=== PATIENT | female | born 1995 | race Two or more races ===

== ENCOUNTER 2019-12-16 13:40 | Inpatient (IN) | payer OTHER ==
[2019-12-16 15:49] VITALS: BMI 45.4
[2019-12-16] MEDS: ELECTROLYTE-148 SOLN 1,000 ML IV SCH (16:00)
[2019-12-16 16:28] LABS: WHITE BLOOD COUNT 7.6 K/mm3 (4.0-10.0)
[2019-12-16 16:29] LABS: BASO % 0.8 % (0-2.0); EOS % 0.3 % (0-4.5); HEMATOCRIT 33.9 % (32.4-45.2); HEMOGLOBIN 11.2 GM/dL (10.7-15.3); LYMPH % 19.6 % (8-40); MCH 28.6 pg (25.7-33.7); MEAN CELL VOLUME 86.7 fl (80-96); MEAN PLT VOLUME 10.8 fl (7.5-11.1); MONO % 5.2 % (3.8-10.2); NEUT % 74.1 % (42.8-82.8); PLATELET COUNT 231 K/MM3 (134-434)
[2019-12-16 16:35] LABS: INR 1.01 (0.83-1.09); PROTHROMBIN TIME (PATIENT) 11.9 SEC (9.7-13.0)
[2019-12-16 16:38] LABS: ACTIVATED PTT 26.2 SECONDS (25.2-36.5)
--- NOTE | 2019-12-16 16:41 | HP ---
Past Medical History - Primary Care Physician PCP:: [facility] - Admission Chief Complaint: referred by Dr. Ladonna JAIMES for IOL due to borderline JANAE of 5, generalized itching and elevated LFTs (atypical preeclampsia vs cholestasis of - bile acids pending) History Source: Patient Limitations to Obtaining History: No Limitations - Past Medical History Reproductive: Yes: Polycystic Ovary Syndrome ...: 3 ...Para: 0 ...Term: 0 ...: 0 ...Spon : 1 ...Induced : 1 ...Living Children: 0 ...Multiple Gestation: 0 ...LMP: 04/06/19 ... Weeks Gestation by Dates: 36.1 ...EDC by Dates: 01/12/20 ...EDC by Sono: 01/15/20 Psych: Yes: Depression (h/o suicide attempt 02/2019 s/p psych [facility] admission x 4 days) - Past Surgical History Past Surgical History: Yes: None Hx Myomectomy: No Hx Transabdominal Cerclage: No - Smoking History Smoking history: Never smoked Have you smoked in the past 12 months: No - Alcohol/Substance Use Hx Alcohol Use: No Home Medications - Allergies Allergies/Adverse Reactions: Allergies Allergy/AdvReac Type Severity Reaction Status Date / Time Sulfa (Sulfonamide Allergy Intermediate Rash Verified 12/16/19 15:20 Antibiotics) - Home Medications Home Medications: Ambulatory Orders Aspirin [ASA -] 81 mg PO DAILY 12/16/19 Pnv No.95/Ferrous Fum/Folic AC [ Vitamin Tablet] 1 each PO DAILY 12/16/19 Review of Systems - Review of Systems Constitutional: reports: No Symptoms Cardiovascular: reports: No Symptoms Respiratory: reports: No Symptoms Gastrointestinal: reports: No Symptoms Genitourinary: reports: No Symptoms Breasts: reports: No Symptoms Reported Musculoskeletal: reports: No Symptoms Neurological: reports: No Symptoms Psychiatric: reports: No Symptoms Physical Exam - Maternity Vital Signs: Vital Signs Temperature 98.9 F 12/16/19 16:23 Pulse Rate 114 H 12/16/19 16:23 Respiratory Rate 12/16/19 16:23 Blood Pressure 111/70 12/16/19 16:23 O2 Sat by Pulse Oximetry (%) Constitutional: Yes: No Distress, Calm Cardiovascular: Yes: Regular Rate and Rhythm Lungs: Clear to auscultation - Abdominal Exam/OB Fundal Height: 36 Number of Fetuses: Single Presentation: Vertex Contractions: No Monitor Mode: External Category: I Accelerations: Uniform Decelerations: None - Vaginal Exam/OB Vaginal Bleeding: No Dilatation (cm): 0 Effacement (%): 0 Amniotic Membrane Status: Intact Presentation: Vertex/Position Station: -4 - Physical Exam Musculoskeletal: Yes: WNL Extremities: Yes: WNL Edema: No Psychiatric: Yes: Alert, Oriented - Labs Lab Results: CBC, BMP 12/16/19 16:04 Assessment/Plan 24 y/o at 36w1d referred by Dr. Dougherty [facility] for IOL due to borderline JANAE of 5, generalized itching and elevated LFTs (atypical preeclampsia vs cholestasis of - bile acids pending) GDMA1 s/p course of steroids last week Admit to L&D EFM and toco Cervidil to be placed Blood glucose monitoring Reassess
[2019-12-16 16:58] LABS: ALBUMIN 2.6 g/dl (3.4-5.0); BILIRUBIN,TOTAL 0.4 mg/dL (0.2-1); BLOOD UREA NITROGEN 16.8 mg/dL (7-18); CALCIUM 9.3 mg/dL (8.5-10.1); CREATININE 0.8 mg/dL (0.55-1.3); POTASSIUM 4.4 mmol/L (3.5-5.1); TOT PROT 6.8 g/dl (6.4-8.2)
[2019-12-16] MEDS ORDERED: DINOPROSTONE 10 MG VAGINAL SUPPOSITORY VG ONE (16:58)
[2019-12-16] MEDS: PROMETHAZINE HCL 25 MG/1 ML VIAL IVPUSH ONE (21:11)
[2019-12-16] MEDS: BUTORPHANOL TARTRATE 1 MG/ML VIAL IVPB ONE (21:11)
[2019-12-17] MEDS ORDERED: DINOPROSTONE 10 MG VAGINAL SUPPOSITORY VG ONE (05:32)
--- NOTE | 2019-12-17 05:38 | PN ---
Progress Note (short form) - Note Progress Note: 24 y/o at 36w2d with GDMA1 undergoing IOL due to generalized itching and elevated LFTs (atypical preeclampsia vs cholestasis of - bile acids pending), borderline JANAE of 5 s/p course of steroids last week Patient c/o crampy abdominal pain; desires pain medication. VSS VE 1-2/50/-3, membranes intact Tracing category 1 Irregular contractions Plan: Cervidil #2 placed Stadol & phenergan EFM and toco Blood glucose monitoring Reassess
[2019-12-17] MEDS: PROMETHAZINE HCL 25 MG/1 ML VIAL IVPUSH ONE (06:00)
[2019-12-17] MEDS: BUTORPHANOL TARTRATE 1 MG/ML VIAL IVPB ONE (06:00)
[2019-12-17] MEDS ORDERED: PROMETHAZINE HCL 25 MG/1 ML VIAL ONE (06:06)
[2019-12-17] MEDS ORDERED: BUTORPHANOL TARTRATE 2 MG/ML VIAL ONE (06:06)
[2019-12-17] MEDS ORDERED: AMPICILLIN SODIUM 2 GM VIAL ONE (08:30)
[2019-12-17] MEDS ORDERED: AMPICILLIN - 2 GM in SODIUM CHLORIDE 100 ML IVPB ONE (08:46)
--- NOTE | 2019-12-17 08:50 | PN ---
Progress Note (short form) - Note Progress Note: cervix 1 cm 50% effaced vertex -2 AROM clear tracing reactive with good variability accelerations no decelerations category I at 140 BPM irregular contractions plan oxytocin augmentation
[2019-12-17] MEDS ORDERED: OXYTOCIN 30 UNITS in 0.9% NS 30 UNIT/500 ML INFUS.BAG IVPB SCH (09:00)
[2019-12-17] MEDS: AMPICILLIN - 1 GM in SODIUM CHLORIDE 100 ML IVPB SCH ×4 (11:08→22:15)
[2019-12-17] MEDS ORDERED: SODIUM CHLORIDE 100 ML IVPB ONE ×2 (11:43→15:49)
[2019-12-17] MEDS ORDERED: AMPICILLIN SODIUM 1 GM VIAL ONE ×2 (11:43→15:49)
--- NOTE | 2019-12-17 12:20 | PN ---
Progress Note (short form) - Note Progress Note: cervix 3cm 90% effaced vertex -1 tracing at 140 bpm reactive with good variability accelerations no decelerations category I at 140 bpm
[2019-12-17] MEDS ORDERED: PCA PUMP NR ONE ×2 (14:19→19:20)
[2019-12-17] MEDS ORDERED: FENTANYL/BUPIVACAINE/NS/PF - PCEA - 50 ML DISP.SYRIN EP ONE (14:19)
[2019-12-17] MEDS: ELECTROLYTE-148 SOLN 1,000 ML IV SCH ×2 (14:30→15:29)
[2019-12-17] MEDS: FENTANYL/BUPIVACAINE/NS/PF - PCEA - 50 ML DISP.SYRIN EP SCH (15:00)
[2019-12-17] MEDS ORDERED: NALOXONE HCL 0.4 MG/ML VIAL IVPUSH PRN (15:17)
--- NOTE | 2019-12-17 19:01 | PN ---
Progress Note (short form) - Note Progress Note: cervix 5-6 cm for the last 3 hours with no change, tracing reactive with good variability accelerations some variable decelerations category I at 140 bpm plan delivery for failure to progress.
[2019-12-17] MEDS ORDERED: CITRIC ACID/SODIUM CITRATE 30 ML UNIT-DOSE CUP PO ONE (19:05)
[2019-12-17] MEDS ORDERED: OXYTOCIN 20 UNITS in 0.9% NS 20 UNIT/1,000 ML INFUS.BAG IV ONE (19:14)
[2019-12-17] MEDS ORDERED: ceFAZolin 2 GRAM PREMIX BAG IVPB ONE (19:15)
[2019-12-17] MEDS ORDERED: ceFAZolin SODIUM 1 GM VIAL ONE (19:17)
[2019-12-17] MEDS ORDERED: SODIUM CHLORIDE 0.9% P/F 10 ML VIAL IJ ONE (19:23)
[2019-12-17] MEDS ORDERED: SUCCINYLCHOLINE CHLORIDE 200 MG/10 ML SYRINGE ONE (19:26)
[2019-12-17] MEDS ORDERED: ePHEDrine SULFATE 50 MG/1 ML AMPULE ONE (19:27)
[2019-12-17] MEDS ORDERED: PHENYLEPHRINE HCL 10 MG/1 ML SINGLE DOSE VIAL ONE (19:27)
[2019-12-17] MEDS ORDERED: ONDANSETRON 4 MG/2 ML VIAL IVPUSH PRN (19:42)
[2019-12-17] MEDS ORDERED: IBUPROFEN 600 MG TABLET (FP) PO PRN (19:42)
[2019-12-17] MEDS ORDERED: morphine SULFATE/PF 0.5 MG/ML (2cc Syringe - QUVA) EP ONE (19:42)
[2019-12-17] MEDS ORDERED: OXYTOCIN 10 UNITS/ML VIAL ONE (19:59)
[2019-12-17] MEDS ORDERED: KETOROLAC TROMETHAMINE 30 MG/1 ML VIAL ONE (20:05)
[2019-12-17] MEDS ORDERED: MIDAZOLAM HCL 2 MG/2 ML SINGLE DOSE VIAL ONE (20:06)
--- NOTE | 2019-12-17 20:30 | OP ---
Operative Note - Note: Operative Date: 12/17/19 Pre-Operative Diagnosis: failed induction. failure to progress Operation: primary section. pfanenstell abdominal. low transverse uterine Findings: baby girl clara vertex Post-Operative Diagnosis: Same as Pre-op Surgeon: Brayden Manzano Station Baggage Agent: Sanjay Skaggs Anesthesia: Spinal Estimated Blood Loss (mls): 800 Operative Report Dictated: Yes
[2019-12-17] MEDS ORDERED: oxyCODONE HCL 5 MG TABLET PO PRN (20:31)
[2019-12-17] MEDS: ACETAMINOPHEN 325 MG TABLET (FP) PO PRN (22:07)
[2019-12-17] MEDS ORDERED: ACETAMINOPHEN 325 MG TABLET (FP) ONE (22:09)
[2019-12-17] MEDS: KETOROLAC TROMETHAMINE 30 MG/1 ML VIAL IVPUSH SCH (23:08)
[2019-12-18] MEDS: ACETAMINOPHEN 325 MG TABLET (FP) PO PRN ×3 (01:43→18:27)
[2019-12-18] MEDS: CEFAZOLIN 1 GM/D5W 1 GM/50 ML BAG IVPB SCH ×3 (01:43→18:29)
[2019-12-18] MEDS: KETOROLAC TROMETHAMINE 30 MG/1 ML VIAL IVPUSH SCH ×3 (03:25→18:30)
[2019-12-18 08:01] LABS: BASO % 0.4 % (0-2.0); EOS % 0.1 % (0-4.5); HEMOGLOBIN 9.5 GM/dL (10.7-15.3); LYMPH % 10.6 % (8-40); MCH 28.1 pg (25.7-33.7); MCHC 32.7 g/dl (32.0-36.0); MEAN CELL VOLUME 85.9 fl (80-96); MEAN PLT VOLUME 10.2 fl (7.5-11.1); NEUT % 81.9 % (42.8-82.8); PLATELET COUNT 156 K/MM3 (134-434); RBC 3.37 M/mm3 (3.60-5.2); RDW 14.4 % (11.6-15.6); WHITE BLOOD COUNT 10.9 K/mm3 (4.0-10.0)
[2019-12-18] MEDS: SIMETHICONE 80 MG TAB.CHEW (FP) PO PRN ×3 (10:09→18:28)
--- NOTE | 2019-12-18 12:10 | PN ---
Progress Note (short form) - Note Progress Note: POD 1 s/p csection with epidural and duramorph. Mild incisional pain, no backpain or CAMPBELL, no other anesthetic issues/complications noted
[2019-12-18] MEDS: IBUPROFEN 600 MG TABLET (FP) PO PRN ×2 (13:02→18:28)
--- NOTE | 2019-12-18 14:30 | PN ---
Post Progress Note Post Day: 1 Type of Delivery: Primary C/S Vital Signs: Vital Signs Temperature 97.4 F L 12/18/19 09:00 Pulse Rate 91 H 12/18/19 09:00 Respiratory Rate 20 12/18/19 13:00 Blood Pressure 98/49 L 12/18/19 09:00 O2 Sat by Pulse Oximetry (%) 100 12/17/19 21:55 Breast Exam: Yes: Soft Uterus: Yes: Fundus Firm, Fundus below umbilicus, Non-tender Incision: Yes: Dressing dry and intact Abdomen/GI: Yes: Abdomen soft, Tolerating PO Lochia: Yes: Rubra Lochia, amount: Small Extremities: Yes: Calves non-tender Activity: Ambulating - Labs Labs: CBC WBC 10.9 K/mm3 (4.0-10.0) H 12/18/19 07:15 RBC 3.37 M/mm3 (3.60-5.2) L 12/18/19 07:15 Hgb 9.5 GM/dL (10.7-15.3) L 12/18/19 07:15 Hct 29.0 % (32.4-45.2) L 12/18/19 07:15 MCV 85.9 fl (80-96) 12/18/19 07:15 MCH 28.1 pg (25.7-33.7) 12/18/19 07:15 MCHC 32.7 g/dl (32.0-36.0) 12/18/19 07:15 RDW 14.4 % (11.6-15.6) 12/18/19 07:15 Plt Count 156 K/MM3 (134-434) D 12/18/19 07:15 MPV 10.2 fl (7.5-11.1) 12/18/19 07:15 Absolute Neuts (auto) 9.0 K/mm3 (1.5-8.0) H 12/18/19 07:15 Neutrophils % 81.9 % (42.8-82.8) 12/18/19 07:15 Lymphocytes % 10.6 % (8-40) D 12/18/19 07:15 Monocytes % 7.0 % (3.8-10.2) 12/18/19 07:15 Eosinophils % 0.1 % (0-4.5) 12/18/19 07:15 Basophils % 0.4 % (0-2.0) 12/18/19 07:15 Nucleated RBC % 0 % (0-0) 12/18/19 07:15 Assessment/Plan S/P delivery, pod # 1, with fever, reports passing flatus Encourage ambulation and incentive spirometer Psychiatry consult requested due to prior suicidal attempts. Continue other management.
--- NOTE | 2019-12-18 14:58 | OP ---
DATE OF OPERATION: 12/17/2019 PREOPERATIVE DIAGNOSIS: Failure to progress. POSTOPERATIVE DIAGNOSIS: Failure to progress. PROCEDURE: Primary section through a Pfannenstiel abdominal low transverse uterine incision. SURGEON: Wendy Luna MD PICKER BOX OPERATOR: Sanjay Skaggs MD ANESTHESIA: Spinal. ESTIMATED BLOOD LOSS: 800 mL PROCEDURE: Following successful induction of spinal anesthesia, patient was placed in the dorsal supine position, was prepped and draped in the usual aseptic fashion for this type of procedure. A Pfannenstiel abdominal incision was made and was carried down to the level of the fascia. The fascia was identified and entered. Peritoneum was identified and entered. Upon entering the peritoneal cavity uterus was identified and a bladder flap was created using smooth pickups and Metzenbaum scissors. Following this, low transverse uterine incision was made with a knife and a baby girl was delivered to the tower equipment repairer in attendance. Following this, the placental membranes were removed. Endometrial contents were cleaned with a dry lap pad. Then the uterine incision was identified with clamps and closed using No. 1 Vicryl in a continuous locking stitch. There was excellent hemostasis at the end of this procedure. Following this, fascia was closed using No. 1 Vicryl after the gutters were cleaned and all blood and debris and clots were removed. After the fascia was closed, the skin incision was closed using devika. WENDY LUNA MD /[id number]
[2019-12-18] MEDS ORDERED: BISACODYL 10 MG SUPP.RECT RC PRN (20:31)
[2019-12-19] MEDS: SIMETHICONE 80 MG TAB.CHEW (FP) PO PRN ×3 (00:04→16:33)
[2019-12-19] MEDS: ACETAMINOPHEN 325 MG TABLET (FP) PO PRN ×4 (00:05→22:02)
[2019-12-19] MEDS: IBUPROFEN 600 MG TABLET (FP) PO PRN ×2 (06:07→16:33)
[2019-12-19] MEDS: FENTANYL/BUPIVACAINE/NS/PF - PCEA - 50 ML DISP.SYRIN EP SCH ×2 (07:16→07:31)
--- NOTE | 2019-12-19 10:18 | DS ---
Physical Exam-CUSTODIAL WORKER Vital Signs: Vital Signs Temperature 97.7 F 12/19/19 09:00 Pulse Rate 92 H 12/19/19 09:00 Respiratory Rate 20 12/19/19 09:00 Blood Pressure 98/63 12/19/19 09:00 O2 Sat by Pulse Oximetry (%) 100 12/17/19 21:55 Constitutional: Yes: Well Nourished Eyes: Yes: WNL HENT: Yes: WNL Neck: Yes: WNL Respiratory: Yes: Regular Internal Exam Deferred: Yes Uterus: Yes: Firm ....Post : Yes: Uterus non-tender Edema: No Labs: CBC, BMP 12/18/19 07:15 12/16/19 16:04 Delivery - Delivery Type of Anesthesia: Epidural Episiotomy/Laceration: None EBL (cc): 800 Delivery, Single - Stages of Labor Date 1st Stage Initiatied: 12/17/19 Time 1st Stage Initiated: 06:00 Date of Delivery: 12/17/19 Time of Delivery: 20:03 Time Placenta Delivered: 20:04 - Condition of Infant Passenger Agent/Application Support Analyst Present: Yes Name: Panfilo Salazar Gender: Female Weight: 2.863 kg Position: Right, OA Total Hours ROM (Hrs/Mins): 11HRS 26MIN - 1 Minute Total Score: 9 5 Minutes Total Score: 9 - [place] Feeding Plan Initial Plan: Elected not to breastfeed exclusively throughout hospitalization Remarks - Remarks Remarks: s/p c section; devika Discharge Summary Problems reviewed: Yes Reason For Visit: INDUCTION OF LABOR Procedures: Principal: c section Hospital Course: benign Plan of Treatment: home Condition: Good - Instructions Diet, Activity, Other Instructions: regular diet Disposition: HOME - Home Medications Comprehensive Discharge Medication List: Ambulatory Orders Aspirin [ASA -] 81 mg PO DAILY 12/16/19 Pnv No.95/Ferrous Fum/Folic AC [ Vitamin Tablet] 1 each PO DAILY 12/16/19 Prescription Drug Monitoring Program (I-STOP) results: I-STOP reviewed and no issues identified (return thursday for devika removal in clinic)
--- NOTE | 2019-12-19 11:05 | CON.PSY ---
Psychiatry Consult Chief Complaint: 24 year old female seen for Psych eval. History of Attempted Suicide last year. Staff report that patient has been doing well. no reports of any suicidal or Depressive behaviour. Good behaviour toward her Baby, pumpimg breast milk. - Previous Psychiatric Treatment Outpatient: None Inpatient: None - Previous Substance Abuse Treatment Outpatient: None Inpatient: None - Reason for Previous Treatment Reason for Previous Treatment: Major Depression - Current Medications Current Medications: Active Medications Acetaminophen (Tylenol -) 650 mg PO Q4H PRN PRN Reason: PAIN LEVEL 6-10 Last Admin: 12/19/19 06:07 Dose: 650 mg Documented by: Bisacodyl (Dulcolax Suppository -) 10 mg RC PRN PRN PRN Reason: CONSTIPATION Diphenhydramine HCl (Benadryl Injection -) 25 mg IVPUSH Q4H PRN PRN Reason: Pruritis Parenteral Electrolytes (Plasma-Lyte 148 -) 1,000 mls @ 125 mls/hr IV ASDIR KENYON Last Admin: 12/17/19 15:29 Dose: 125 mls/hr Documented by: Oxytocin/Sodium Chloride (Normal Saline+30 Units Oxytocin) 30 unit in 500 mls @ 1 mls/hr IVPB TITR KENYON; Protocol Last Titration: 12/17/19 19:00 Dose: 0 unit/hr, 0 mls/hr Documented by: Ibuprofen (Motrin -) 600 mg PO Q4H PRN PRN Reason: PAIN LEVEL 1 - 3 Last Admin: 12/19/19 06:07 Dose: 600 mg Documented by: Naloxone HCl (Narcan -) 0.4 mg IVPUSH PRN PRN PRN Reason: Sedation Ondansetron HCl (Zofran Injection) 4 mg IVPUSH Q4H PRN PRN Reason: NAUSEA Simethicone (Mylicon -) 80 mg PO Q4H PRN PRN Reason: GAS Last Admin: 12/19/19 06:08 Dose: 80 mg Documented by: - Allergies Allergies: Allergies Allergy/AdvReac Type Severity Reaction Status Date / Time Sulfa (Sulfonamide Allergy Intermediate Rash Verified 12/16/19 15:20 Antibiotics) - Current Living Status Usual Living Arrangement: With Spouse - Current Mental Status Evaluation Appearance: Well Groomed Attitude: Cooperative - Affect Affect: Full Range Appropriateness: Appropriate to Content - Mood Mood: Euthymic - Speech/Language Expressive: Coherent - Psychomotor Activity Psychomotor Activity: Normal - Thought Process Thought Process: Intact - Thought Content Hallucinations: Absent Delusions: Absent - Self Perception Self Perception: No Impairment - Cognition Attention: Alert Orientation: Time Memory, Immediate Recall: Intact Memory, Short Term: 3/3 Memory, Remote with Promptin/3 - Concentration Serial Sevens Intact: No Simple Calculations Intact: Yes - Abstraction Proverb Interpretation: Intact Judgement: Intact - Insight Insight: Intact - Impulse Control Impulse Control: Good Control - Suicidal Ideation Suicidal Ideation: No - Homicidal Ideation Homicidal Ideation: No Assessment/Plan 1) No evidence of Clinical Depression at this time. 2) No need for Psych meds. 3) d/c Home when medically stable. No psych follow up needed.
[2019-12-20 07:56] LABS: BASO % 0.2 % (0-2.0); EOS % 2.2 % (0-4.5); LYMPH % 12.5 % (8-40); MCHC 32.2 g/dl (32.0-36.0); MEAN CELL VOLUME 86.8 fl (80-96); MEAN PLT VOLUME 10.3 fl (7.5-11.1); MONO % 6.6 % (3.8-10.2); NEUT % 78.5 % (42.8-82.8); PLATELET COUNT 183 K/MM3 (134-434); RBC 3.23 M/mm3 (3.60-5.2); RDW 14.5 % (11.6-15.6); WHITE BLOOD COUNT 8.5 K/mm3 (4.0-10.0)
[2019-12-20] MEDS: IBUPROFEN 600 MG TABLET (FP) PO PRN ×2 (08:48→20:29)
[2019-12-20] MEDS: SIMETHICONE 80 MG TAB.CHEW (FP) PO PRN ×2 (08:49→20:29)
--- NOTE | 2019-12-20 10:43 | PN ---
Post Progress Note - Subjective Subjective: Pt c/o rash in her neck, abdominal wall, arms incision pain Breast feeding in the NICU Happy Type of Delivery: Primary C/S Vital Signs: Vital Signs Temperature 97.8 F 12/19/19 20:41 Pulse Rate 91 H 12/19/19 20:41 Respiratory Rate 20 12/19/19 20:41 Blood Pressure 93/60 12/19/19 20:41 O2 Sat by Pulse Oximetry (%) 100 12/17/19 21:55 Breast Exam: Yes: Soft Uterus: Yes: Fundus Firm, Fundus below umbilicus Incision: Yes: [place] intact Abdomen/GI: Yes: Abdomen soft Lochia: Yes: Rubra Lochia, amount: Small Extremities: Yes: Calves non-tender Activity: Ambulating - Labs Labs: CBC WBC 8.5 K/mm3 (4.0-10.0) 12/20/19 07:26 RBC 3.23 M/mm3 (3.60-5.2) L 12/20/19 07:26 Hgb 9.0 GM/dL (10.7-15.3) L 12/20/19 07:26 Hct 28.0 % (32.4-45.2) L 12/20/19 07:26 MCV 86.8 fl (80-96) 12/20/19 07:26 MCH 28.0 pg (25.7-33.7) 12/20/19 07:26 MCHC 32.2 g/dl (32.0-36.0) 12/20/19 07:26 RDW 14.5 % (11.6-15.6) 12/20/19 07:26 Plt Count 183 K/MM3 (134-434) 12/20/19 07:26 MPV 10.3 fl (7.5-11.1) 12/20/19 07:26 Absolute Neuts (auto) 6.6 K/mm3 (1.5-8.0) 12/20/19 07:26 Neutrophils % 78.5 % (42.8-82.8) 12/20/19 07:26 Lymphocytes % 12.5 % (8-40) 12/20/19 07:26 Monocytes % 6.6 % (3.8-10.2) 12/20/19 07:26 Eosinophils % 2.2 % (0-4.5) D 12/20/19 07:26 Basophils % 0.2 % (0-2.0) 12/20/19 07:26 Nucleated RBC % 0 % (0-0) 12/20/19 07:26 Problem List - Problems (1) delivery delivered Code(s): O82 - ENCOUNTER FOR DELIVERY WITHOUT INDICATION (2) Cholestasis during Code(s): O26.619 - LIVER AND BILIARY TRACT DISORD IN , UNSP TRIMESTER; K83.1 - OBSTRUCTION OF BILE DUCT Assessment/Plan Ambulate Breast feeding Benadryl for itching CMP, liver profile in am
[2019-12-20 11:53] VITALS: TEMP 98.4
--- NOTE | 2019-12-20 13:29 | PATH ---
Surgical Pathology Report Patient Name: OZZY CHAVEZ Med. Rec. #: [id number] /Age/Gender: 1995 (Age: 24) / F Account: [id number] Location: [facility] OBS/HARNESS CUTTER Taken: 12/17/2019 Received: 12/19/2019 Reported: 12/20/2019 Physicians: Lin Berger M.D. Specimen(s) Received PLACENTA Clinical History , 35.6 weeks, arrest of dilatation Final Diagnosis PLACENTA, SECTION: 466 G THIRD TRIMESTER PLACENTA WITH TRIVASCULAR UMBILICAL CORD AND UNREMARKABLE PLACENTAL MEMBRANES. Electronically Signed Mag Alatorre M.D. Gross Description The specimen is received fresh labeled placenta and is a 466 gram, 18.5 x 15.5 x 2.3 cm. placenta with attached membranes and umbilical cord. The attached membranes are ledesma, translucent with focal opacities and insert marginally. The umbilical cord measures 30 cm. in length and averages 1.1 cm. in diameter. The cord inserts eccentrically, 3 cm. to the nearest margin. No true knots or strictures are identified. Cut surface of the umbilical cord reveals 3 vessels. The surface is osei-blue with minimal fibrin deposition and appropriate caliber vessels. The maternal surface is red-brown with focal defects. Sectioning reveals red-brown, spongy parenchyma. No lesions are identified. Birthing Nurse sections are submitted in three cassettes as follows: 1- membrane rolls and umbilical cord; 2-3- full thickness sections of placenta. /12/19/2019 [facility]/19/[facility]
[2019-12-20] MEDS: ACETAMINOPHEN 325 MG TABLET (FP) PO PRN (20:29)
[2019-12-20] MEDS: ELECTROLYTE-148 SOLN 1,000 ML IV SCH ×2 (21:52→21:53)
[2019-12-21 09:02] LABS: ALBUMIN 2.2 g/dl (3.4-5.0); BILIRUBIN,DIRECT 0.1 mg/dL (0.0-0.2); BILIRUBIN,TOTAL 0.9 mg/dL (0.2-1); BLOOD UREA NITROGEN 9.2 mg/dL (7-18); CALCIUM 8.6 mg/dL (8.5-10.1); CREATININE 0.5 mg/dL (0.55-1.3); POTASSIUM 4.7 mmol/L (3.5-5.1); TOT PROT 5.8 g/dl (6.4-8.2)
[2019-12-21 11:50] VITALS: BP 103/65; PULSE 77
[2019-12-21] MEDS: IBUPROFEN 600 MG TABLET (FP) PO PRN (12:51)
[2019-12-21] MEDS: SIMETHICONE 80 MG TAB.CHEW (FP) PO PRN (12:51)
[2019-12-21] MEDS: ACETAMINOPHEN 325 MG TABLET (FP) PO PRN (12:51)
--- NOTE | 2019-12-21 14:21 | PN ---
Post Progress Note - Subjective Subjective: feels well - wants to be discharged Post Day: 4 Type of Delivery: Primary C/S Vital Signs: Vital Signs Temperature 98.4 F 12/21/19 09:00 Pulse Rate 77 12/21/19 09:00 Respiratory Rate 18 12/21/19 09:00 Blood Pressure 103/65 12/21/19 09:00 O2 Sat by Pulse Oximetry (%) 99 12/20/19 20:53 Breast Exam: Yes: Soft Uterus: Yes: Fundus Firm Incision: Yes: Dressing dry and intact, [place] intact Abdomen/GI: Yes: Abdomen soft, Passing flatus Lochia, amount: Small Extremities: Yes: Calves non-tender Activity: Ambulating - Labs Labs: CBC WBC 8.5 K/mm3 (4.0-10.0) 12/20/19 07:26 RBC 3.23 M/mm3 (3.60-5.2) L 12/20/19 07:26 Hgb 9.0 GM/dL (10.7-15.3) L 12/20/19 07:26 Hct 28.0 % (32.4-45.2) L 12/20/19 07:26 MCV 86.8 fl (80-96) 12/20/19 07:26 MCH 28.0 pg (25.7-33.7) 12/20/19 07:26 MCHC 32.2 g/dl (32.0-36.0) 12/20/19 07:26 RDW 14.5 % (11.6-15.6) 12/20/19 07:26 Plt Count 183 K/MM3 (134-434) 12/20/19 07:26 MPV 10.3 fl (7.5-11.1) 12/20/19 07:26 Absolute Neuts (auto) 6.6 K/mm3 (1.5-8.0) 12/20/19 07:26 Neutrophils % 78.5 % (42.8-82.8) 12/20/19 07:26 Lymphocytes % 12.5 % (8-40) 12/20/19 07:26 Monocytes % 6.6 % (3.8-10.2) 12/20/19 07:26 Eosinophils % 2.2 % (0-4.5) D 12/20/19 07:26 Basophils % 0.2 % (0-2.0) 12/20/19 07:26 Nucleated RBC % 0 % (0-0) 12/20/19 07:26 Assessment/Plan PO day 4 discharge followup fri for staple removal
== END 2019-12-21 15:55 | disposition home or self-care (01) | DRG 540 ==
LOC: JLDR 13:40 → J3W 12-17 22:30
PROVIDERS: ADMIT Obstetrics & Gynecology; ATTEND Obstetrics & Gynecology
PROC: 3E0P7VZ Introduction of Hormone into Female Reproductive, Via Natural or Artificial Opening (ICD-10-PCS; 2019-12-16)
PROC: 10D00Z1 Extraction of Products of Conception, Low, Open Approach (ICD-10-PCS; principal; 2019-12-17)
PROC: 10907ZC Drainage of Amniotic Fluid, Therapeutic from Products of Conception, Via Natural or Artificial Opening (ICD-10-PCS; 2019-12-17)
DX: O61.0 Failed medical induction of labor (principal); O62.2 Other uterine inertia; O28.8 Other abnormal findings on antenatal screening of mother; R77.2 Abnormality of alphafetoprotein; O24.420 Gestational diabetes mellitus in childbirth, diet controlled; O26.613 Liver and biliary tract disorders in pregnancy, third trimester; K83.1 Obstruction of bile duct; O99.284 Endocrine, nutritional and metabolic diseases complicating childbirth; E28.2 Polycystic ovarian syndrome; Z86.59 Personal history of other mental and behavioral disorders; O26.893 Other specified pregnancy related conditions, third trimester; L29.8 Other pruritus; R21 Rash and other nonspecific skin eruption; Z88.2 Allergy status to sulfonamides; O60.14X0 Preterm labor third trimester with preterm delivery third trimester, not applicable or unspecified; Z3A.36 36 weeks gestation of pregnancy; Z37.0 Single live birth
CPT/HCPCS: 36415; 80053; 80076; 82962; 85025; 85610; 85730; 86780; 86850; 86900; 86901; 87389; 88307-TC; U0003